=== PATIENT | male | born 2000 | race African-American/Black ===

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

== ENCOUNTER 2022-03-02 19:55 | Emergency (ER) | payer MEDICAID ==
[~2022-03-02] VITALS: Ht 190.5 cm; Wt 84.1 kg
[2022-03-02 20:03] VITALS: TEMP 98.1
[2022-03-02] MEDS ORDERED: ROBAXIN 75750 MG/TAB PO (20:23)
[2022-03-02 20:35] VITALS: BP 135/83; PULSE 87
== END 2022-03-02 20:35 | disposition home or self-care (01) ==
LOC: COL.ER 19:55
DX: M62.830 Muscle spasm of back (principal); X50.0XXA Overexertion from strenuous movement or load, initial encounter